=== PATIENT | male | born 1975 | race Caucasian/White ===

== ENCOUNTER → 2020-12-05 15:22 | Outpatient (CLI) | payer OTHER, SELFPAY ==
--- NOTE | 2020-12-05 | DI.MRI.S_ITS ---
PROCEDURE: MR LUMBAR SPINE WO CON INDICATIONS: SPINAL STENOSIS TECHNIQUE: Noncontrast sagittal T1 spin echo and T2 fast echo, sagittal STIR, axial T1 and T2 fast spin echo through the lumbar spine. In cases with scoliosis, additional coronal T2 fast spin echo may be performed. COMPARISON: None. FINDINGS: Image quality: Diagnostic, with note made of motion artifact. Alignment and Curvature: There is normal bony alignment. Bone Marrow: Marrow is of normal overall signal. No acute vertebral body compression fractures. Spinal Cord: Conus medullaris terminates at the T12-L1 level. Visualized cord demonstrates normal signal and size. Paraspinous Soft Tissues: No paravertebral masses. T11-T12: Mild loss of disc height is seen. Loss of disc signal is seen. Bridging endplate osteophytes are seen. No significant neural foraminal or central canal narrowing can be seen. T12-L1: Normal appearance. L1-L2: Normal appearance. L2-L3: Normal appearance. L3-L4: The disc height is well-preserved. Loss of disc signal is seen at this level. Mild to moderate disc bulge is seen. Mild facet joint hypertrophy is seen. There is mild left-sided and no right-sided neural foraminal narrowing seen. Mild central canal narrowing is seen. L4-L5: The disc height and disk signal are well-preserved. Mild to moderate disc bulge is seen, with a central disc protrusion. There is a focal annular fissure seen posteriorly. Moderate facet joint hypertrophy is seen. Mild bilateral neural foraminal narrowing is seen. Minimal central canal narrowing is seen. L5-S1: Mild loss of disc height is seen. Loss of disc signal is seen. A mild disc bulge is seen, with a mild central disc protrusion. There is a focal annular fissure seen posteriorly. Moderate facet joint hypertrophy is seen. Mild to moderate neural foraminal narrowing can be seen. No significant central canal narrowing is seen. IMPRESSION: Focal lower lumbar spine degenerative changes are seen. Annular tears can be seen posteriorly at L4-L5 and L5-S1. Dictated by: Ricci Milan M.D. on 12/05/2020 at 16:01 Approved by: Ricci Milan M.D. on 12/05/2020 at 16:04
== END ==
PROVIDERS: PCP Family Medicine; Referring Provider Physical Medicine & Rehabilitation Pain Medicine; Visit Provider Physical Medicine & Rehabilitation Pain Medicine
DX: M48.062 Spinal stenosis, lumbar region with neurogenic claudication (principal); M47.816 Spondylosis without myelopathy or radiculopathy, lumbar region; M47.817 Spondylosis without myelopathy or radiculopathy, lumbosacral region; M51.36 Other intervertebral disc degeneration, lumbar region; M51.37 Other intervertebral disc degeneration, lumbosacral region
CPT/HCPCS: 72148

== ENCOUNTER → 2021-03-27 13:07 | Outpatient (CLI) | payer OTHER, SELFPAY ==
--- NOTE | 2021-03-27 13:09 | DI.RAD.S_ITS ---
PROCEDURE: [place] SHOULDER INJECTION MR/CT RT INDICATIONS: BURSITIS OF RIGHT SHOULDER COMPARISON: [facility], MR, MR SHOULDER RT W CON, 03/27/2021, 14:02. TECHNIQUE: The indications, alternatives, benefits, risks, and complications of the procedure were explained to the patient. Written informed consent was obtained and placed in the chart. The shoulder was examined fluoroscopically and a site for needle placement chosen for entry into the glenohumeral joint from an anterior approach. The skin was prepped and draped in a sterile fashion, and 1% lidocaine infiltrated from skin down to joint capsule. A spinal needle was inserted into the glenohumeral joint, and a small amount of iodinated contrast media injected to confirm intra-articular placement of the needle tip. This was followed by approximately 12 mL dilute solution of a gadolinium containing MR contrast agent. The needle was removed and a dressing was applied. The patient was given postprocedural instructions and sent to the MR suite for MR imaging. FINDINGS: A single fluoroscopic spot image demonstrates intra-articular location of injected iodinated contrast. IMPRESSION: Successful fluoroscopically guided administration of dilute Gadolinium solution into the shoulder joint for MR arthrogram. Dictated by: Titi Harding M.D. on 03/27/2021 at 15:22 Approved by: Titi Harding M.D. on 03/27/2021 at 15:23
--- NOTE | 2021-03-27 13:10 | DI.MRI.S_ITS ---
PROCEDURE: MR SHOULDER RT W CON INDICATIONS: BURSITIS OF RIGHT SHOULDER TECHNIQUE: After the administration of 12 mL of dilute intra-articular Gadolinium contrast, oblique coronal T1 and T2 spin echo with fat saturation, oblique sagittal T1 spin echo with and without fat saturation, oblique sagittal T2 fast spin echo with fat saturation, axial T1 spin echo with fat saturation through the shoulder. COMPARISON: [facility], , [place] SHOULDER INJECTION MR/CT RT, 03/27/2021, 14:44. FINDINGS: Image quality: Excellent. Rotator cuff: There is mild supraspinatus tendinosis. The infraspinatus and teres minor tendons are intact. The subscapularis tendon also appears intact. There is no significant rotator cuff muscle atrophy. Bones and bursae: No acute trabecular bone injury. Mild degenerative changes are seen at the acromioclavicular joint. Subtle flattening of the posterior humeral head measuring approximately 21 x 11 x 2 mm could represent a chronic Hill-Sachs lesion. There is focal full-thickness cartilage loss at the superior medial humeral head with adjacent cartilage delamination measuring 5 x 4 mm. Full-thickness cartilage loss is seen in the inferior to posterior glenoid. There is chronic regularity of the anteroinferior glenoid with subchondral cystic changes. A trace amount of fluid is seen in the subacromial/subdeltoid bursa. No focal filling defect is seen within the glenohumeral joint space. Capsule and soft tissues: There is nondisplaced tearing of the inferior labrum extending into the anteroinferior and posteroinferior labrum. A prominent paralabral cyst is seen projecting inferiorly measuring 17 x 13 x 12 mm, which does not fill with intra-articular contrast material. No denervation changes are seen within the teres minor or deltoid muscle. The biceps long head tendon is intact. The glenohumeral ligaments are intact. IMPRESSION: 1. Nondisplaced tearing of the anteroinferior, inferior, and posteroinferior labrum. A noncommunicating a paralabral cyst is seen projecting inferiorly measuring up to 17 mm. No definite mass effect on the axillary nerve or signs of acute or chronic denervation changes. 2. Mild flattening of the posterior humeral head without associated osseous edema is suspicious for a remote prior shallow Hill-Sachs lesion measuring 21 x 11 x 2 mm. Chronic osseous irregularity is seen at the anteroinferior glenoid that may be related to a prior impaction injury. 3. Focal full-thickness cartilage loss at the superomedial humeral head with adjacent cartilage delamination measuring 5 x 4 mm. Full-thickness cartilage loss is also seen at the inferior to posterior glenoid. 4. Mild acromioclavicular osteoarthrosis. 5. Trace subacromial/subdeltoid bursal effusion or bursitis. Dictated by: Curtis Espinoza M.D. on 03/27/2021 at 17:14 Approved by: Curtis Espinoza M.D. on 03/27/2021 at 17:22
== END ==
PROVIDERS: Referring Provider Orthopaedic Surgery; Visit Provider Orthopaedic Surgery
DX: S43.491A Other sprain of right shoulder joint, initial encounter (principal); M19.011 Primary osteoarthritis, right shoulder; M75.51 Bursitis of right shoulder
CPT/HCPCS: 23350; 73222; 77002

== ENCOUNTER 2021-07-18 13:10 | Outpatient (CLI) | payer OTHER, SELFPAY | END 2021-07-23 12:18 | disposition home or self-care (01) | LOC: PHYS 13:12 | PROVIDERS: Family Provider Family Medicine; PCP Family Medicine; Referring Provider Family Medicine; Visit Provider Family Medicine | DX: G56.92 Unspecified mononeuropathy of left upper limb (principal) | CPT/HCPCS: 95885; 95886; 95913 ==